=== PATIENT | male | born 1940 | race Caucasian/White ===

== ENCOUNTER → 2019-05-15 | Day surgery (SDC) | payer MEDICARE, BC ==
[2019-05-14 15:54] VITALS: BMI 30.7
[~2019-05-15] MED LIST: Adenosine 6 MG/2 ML VIAL ONE; Clopidogrel Bisulfate 300 MG TAB ONE; Diazepam 5 MG TAB ONE; Enalaprilat Dihydrate 1.25 MG/ML VIAL ONE; Fentanyl 100 MCG/2 ML VIAL ONE; Heparin (Artline) 500 ML ONE; Heparin 10,000 UNITS/1 ML VIAL ONE; Iopamidol 370 76% 100 ML VIAL ONE; Iopamidol 370 76% 50 ML VIAL FS ONE; Lidocaine 1% (PF) 30 ML VIAL ONE; Midazolam HCl 2 mg/2 ml Vial ONE; Nitroglycerin 100MG/250ML BOT 250 ML ONE; Verapamil 5 MG/2 ML VIAL ONE
[2019-05-15 10:36] LABS: #Eosinphils 0.1 thou/uL (0.0-0.7); #Lymphocytes 1.1 thou/uL (1.20-3.40); #Monocytes 0.6 thou/uL (0.11-0.59); #Neutrophils 5.1 thou/uL (1.40-6.50); %Basophils 0.3 % (0.0-1.0); %Eosinophils 1.2 % (0.0-10.0); %Lymphocytes 15.9 % (21.0-51.0); %Monocytes 8.2 % (0.0-10.0); %Neutrophils 74.3 % (42.0-75.0); Mean Corpuscular Hemoglobin 31.7 pg (27.0-31.0); Mean Corpuscular Volume 96.1 fL (78.0-98.0); Mean Platelet Volume 9.4 fL (7.4-10.4); Platelet Count 142 thou/uL (130-400); RBC Distribution Width 12.4 % (11.5-14.5); Red Blood Cell (RBC) Count 4.43 mill/uL (4.70-6.10); White Blood Cell (WBC) Count 6.9 thou/uL (4.8-10.8)
[2019-05-15 10:52] LABS: Anion Gap 13 mmol/L (10-20); BUN (Urea Nitrogen) 17 mg/dL (8.4-25.7); Calc. Creatinine Clearance 64 mL/min (70-130); Calcium 9.8 mg/dL (7.8-10.44); Carbon Dioxide 24 mmol/L (23-31); Chloride 105 mmol/L (98-107); Estimated GFR-MDRD 54; Glucose 105 mg/dL (83-110); Potassium 4.7 mmol/L (3.5-5.1); Sodium 137 mmol/L (136-145)
== END ==
LOC: CCL 09:47
PROVIDERS: ATTEND Internal Medicine Cardiovascular Disease
PROC: 027034Z Dilation of Coronary Artery, One Artery with Drug-eluting Intraluminal Device, Percutaneous Approach (ICD-10-PCS; principal; 2019-05-15)
PROC: 4A023N7 Measurement of Cardiac Sampling and Pressure, Left Heart, Percutaneous Approach (ICD-10-PCS; 2019-05-15)
PROC: B2111ZZ Fluoroscopy of Multiple Coronary Arteries using Low Osmolar Contrast (ICD-10-PCS; 2019-05-15)
DX: I25.10 Atherosclerotic heart disease of native coronary artery without angina pectoris (principal); I35.0 Nonrheumatic aortic (valve) stenosis; E78.00 Pure hypercholesterolemia, unspecified; I10 Essential (primary) hypertension; E11.9 Type 2 diabetes mellitus without complications; Z79.82 Long term (current) use of aspirin; Z79.899 Other long term (current) drug therapy; Z88.8 Allergy status to other drugs, medicaments and biological substances
CPT/HCPCS: 76942; 80048; 85025; 85347; 92928; 93005; 93010; 93454; 93571; 99152; 99153; C1760; C1769; C1887; C9600; J0153; J1644; J2001; J2250; J3010; Q9967

== ENCOUNTER 2019-06-22 14:48 | Inpatient (IN) | payer MEDICARE, BC ==
[2019-06-22 15:11] LABS: #Basophils 0.1 thou/uL (0.0-0.2); #Lymphocytes 1.7 thou/uL (1.20-3.40); #Monocytes 0.5 thou/uL (0.11-0.59); #Neutrophils 11.3 thou/uL (1.40-6.50); %Basophils 0.4 % (0.0-1.0); %Eosinophils 0.2 % (0.0-10.0); %Lymphocytes 12.4 % (21.0-51.0); %Monocytes 3.8 % (0.0-10.0); %Neutrophils 83.2 % (42.0-75.0); Hemoglobin 13.1 g/dL (14.0-18.0); Mean Corpuscular HGB CONC 34.1 g/dL (32.0-36.0); Mean Corpuscular Hemoglobin 32.2 pg (27.0-31.0); Mean Corpuscular Volume 94.5 fL (78.0-98.0); Platelet Count 151 thou/uL (130-400); Red Blood Cell (RBC) Count 4.08 mill/uL (4.70-6.10); White Blood Cell (WBC) Count 13.6 thou/uL (4.8-10.8)
--- NOTE | 2019-06-22 15:14 | RAD ---
Exam: Chest one view HISTORY:Hypotension. Syncope. Comparison: 08/11/2012 FINDINGS: Cardiac silhouette: Normal Aorta: Atherosclerosis of the aortic knob Pulmonary vessels: Normal Costophrenic angles: Clear LUNGS: No masses or consolidation. Pneumothorax: None Osseous abnormalities: None IMPRESSION: No acute cardiopulmonary process. Atherosclerosis.
[2019-06-22] MEDS ORDERED: Iopamidol 370 76% 100 ML VIAL ONE (15:15)
[2019-06-22] MEDS ORDERED: Ondansetron PF 4 MG/2 ML Vial ONE (15:33)
[2019-06-22 15:34] LABS: ALT (SGPT) 19 U/L (8-55); AST (SGOT) 14 U/L (5-34); Albumin 4.2 g/dL (3.4-4.8); Alkaline Phosphatase 57 U/L (40-110); Anion Gap 16 mmol/L (10-20); BUN (Urea Nitrogen) 71 mg/dL (8.4-25.7); Bilirubin, Total 0.7 mg/dL (0.2-1.2); CK (CPK) 50 U/L (30-200); Calc. Creatinine Clearance 0 mL/min (70-130); Calcium 9.8 mg/dL (7.8-10.44); Carbon Dioxide 18 mmol/L (23-31); Chloride 106 mmol/L (98-107); Estimated GFR-MDRD 35; Globulin 2.7 g/dL (2.4-3.5); Glucose 166 mg/dL (83-110); Protein, Total 6.9 g/dL (5.8-8.1); Sodium 135 mmol/L (136-145)
[2019-06-22] MEDS ORDERED: Pantoprazole 40 MG VIAL ONE (18:22)
--- NOTE | 2019-06-22 18:22 | CT ---
CT Abdomen Pelvis W Con: 06/22/2019 5:51 PM CLINICAL INFORMATION: Nausea and vomiting. Hypotension. COMPARISON: None. TECHNIQUE: Multiple contiguous axial images were obtained and a CT of the abdomen and pelvis with IV contrast. C oronal and sagittal reformats were performed. FINDINGS: Lower Chest: Small hiatal hernia Abdomen: Liver: within normal limits. Bile Ducts: Normal caliber. Gallbladder: Calcified gallstone in the neck. Pancreas: within normal limits. Spleen: within normal limits. Adrenals: within normal limits. Kidneys: 2.2 cm left renal cyst Pelvis: Reproductive Organs: No pelvic masses. Ureters: within normal limits. Bladder: within normal limits. Peritoneum: No ascites or free air, no fluid collection. Bowel: Normal caliber. Normal appendix. Scattered diverticula in the colon. Mesentery and Retroperitoneum: No enlarged mesenteric or retroperitoneal lymph nodes. Vessels: Atherosclerotic calcifications. Abdominal Wall: within normal limits. Bones: Degenerative changes in the spine. IMPRESSION: 1. No evidence of acute intraabdominal or pelvic abnormality. 2. Cholelithiasis 3. Diverticulosis 4. Hiatal hernia 5. Left renal cyst
[2019-06-22 19:26] LABS: Troponin I 0.052 ng/mL (< 0.028)
[2019-06-22] MEDS ORDERED: Acetaminophen 325 MG TAB PO PRN (19:31)
[2019-06-22] MEDS ORDERED: Acetaminophen 650 MG Suppository PR PRN (19:31)
[2019-06-22 20:22] LABS: Lactic Acid 0.8 mmol/L (0.5-2.2)
[2019-06-22] MEDS: Sodium Chloride 0.9% 1,000 ML IV SCH (20:49)
[2019-06-22 21:41] VITALS: BMI 30.7
--- NOTE | 2019-06-22 22:34 | PDOC.HHP ---
Hospitalist HPI - History of Present Illness light headed and dry heaving History of Present Illness: 78 year old male with history of recent cardiac stent placement presents for hypotension and upper abdominal pain. Stated yesterday he checked his blood pressure after taking his morning medications and it was 85/39 but blood pressure began to rise throughout the day. Today, patient states he felt "badly " and notes his blood pressure was low again and had abdominal pain with dry heaves along with diaphoresis. After patient had "dry heaves" his blood pressure increased and he felt better. Patient known to Dr. Chappell who performed a cardiac cath last month, (stent x 1), and states he had an ECHO done in his office as well. Reports ahving chronic cough that has not worsened and chronic shortness of breath with exertion, denies any associated chest pain. Has been afebrile in recent days. Reports a quart of caffeine tea and cups of coffee daily, does not drink water. ED Course: Renal function worse from baseline and given 2L NS. Due to significantly elevated BUN of 70 there was concern of GIB, given reported black stools, however, patient states this is chronic due to iron supplements. Started on Protonix IVP and given Zofran for nausea. CT Abdomen with pelvis: IMPRESSION: 1. No evidence of acute intraabdominal or pelvic abnormality. 2. Cholelithiasis 3. Diverticulosis 4. Hiatal hernia 5. Left renal cyst Indeterminate troponin 0.052 EKG showed NSR heart rate 81, nonspecific changes. Hospitalist ROS - Review of Systems Constitutional: denies: fever, chills, sweats, weakness, malaise, other Eyes: denies: pain, vision change, conjunctivae inflammation, eyelid inflammation, redness, other ENT: denies: ear pain, ear discharge, nose pain, nose discharge, nose congestion , mouth pain, mouth swelling, throat pain, throat swelling, other Respiratory: reports: SOB with excertion (chronic). denies: cough, dry, shortness of breath, hemoptysis, pleuritic pain, sputum, wheezing, other Cardiovascular: reports: light headedness. denies: chest pain, palpitations, orthopnea, paroxysmal noc. dyspnea, edema, other Gastrointestinal: reports: nausea (dry heaving), abdominal pain. denies: vomiting, diarrhea, constipation, melena, hematochezia, other Genitourinary: denies: dysuria, frequency, incontinence, hematuria, retention, other Musculoskeletal: denies: neck pain, shoulder pain, arm pain, back pain, hand pain, leg pain, foot pain, other Skin: denies: rash, lesions, maribell, bruising, other Neurological: denies: weakness, numbness, incoordination, change in speech, confusion, seizures, other - Medication Medications: Active Medications Generic Name Dose Route Start Last Admin Trade Name Phiq PRN Reason Stop Dose Admin Sodium Chloride 1,000 mls @ 65 mls/hr 06/22/19 19:45 06/22/19 20:49 Normal Saline 0.9% IV 1,000 mls .[id number] YESY Administration Allergies: NKDA Hospitalist History - Past Medical History Source: patient Cardiac: reports: HTN, Other (stent placement) Pulmonary: reports: high cholesterol 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 Gastrointestinal: reports: no pertinent history Heme/Onc: reports: no pertinent history Hepatobiliary: reports: no pertinent history Psych: reports: no pertinent history Musculoskeletal: reports: no pertinent history Rheumatologic: reports: no pertinent history Infectious Disease: reports: no pertinent history ENT: reports: no pertinent history Renal/: reports: no pertinent history Endocrine: reports: Hypothyroidism Dermatology: reports: no pertinent history - Social History Smoking Status: Former smoker Alcohol: reports: None Drugs: reports: none Living Situation: With Family Activity level: independent ambulation - Exam General Appearance: NAD, awake alert Eye: anicteric sclera ENT: moist mucosa Neck: supple, no JVD Heart: RRR, normal peripheral pulses, murmur present Respiratory: CTAB, no wheezes, no rales, no ronchi, normal chest expansion, no tachypnea Gastrointestinal: soft, non-tender, non-distended, normal bowel sounds, no guarding, no rigidity Extremities: no cyanosis, no edema Skin: normal turgor Neurological: cranial nerve grossly intact Musculoskeletal: normal tone, normal strength, no muscle wasting Psychiatric: normal affect, normal behavior, A&O x 3 Hospitalist Results - Labs Result Diagrams: 06/22/19 15:02 06/22/19 15:02 Lab results: WBC 13.6 thou/uL (4.8-10.8) H 06/22/19 15:02 Hgb 13.1 g/dL (14.0-18.0) L 06/22/19 15:02 Hct 38.6 % (42.0-52.0) L 06/22/19 15:02 MCV 94.5 fL (78.0-98.0) 06/22/19 15:02 Plt Count 151 thou/uL (130-400) 06/22/19 15:02 Neutrophils % 83.2 % (42.0-75.0) H 06/22/19 15:02 Sodium 135 mmol/L (136-145) L 06/22/19 15:02 Potassium 5.0 mmol/L (3.5-5.1) 06/22/19 15:02 Chloride 106 mmol/L (98-107) 06/22/19 15:02 Carbon Dioxide 18 mmol/L (23-31) L 06/22/19 15:02 BUN 71 mg/dL (8.4-25.7) H 06/22/19 15:02 Creatinine 1.86 mg/dL (0.7-1.3) H 06/22/19 15:02 Glucose 166 mg/dL (83-110) H 06/22/19 15:02 Lactic Acid 0.8 mmol/L (0.5-2.2) 06/22/19 19:56 Calcium 9.8 mg/dL (7.8-10.44) 06/22/19 15:02 Total Bilirubin 0.7 mg/dL (0.2-1.2) 06/22/19 15:02 AST 14 U/L (5-34) 06/22/19 15:02 ALT 19 U/L (8-55) 06/22/19 15:02 Alkaline Phosphatase 57 U/L (40-110) 06/22/19 15:02 Creatine Kinase 50 U/L (30-200) 06/22/19 15:02 Troponin I 0.032 ng/mL (< 0.028) H 06/22/19 21:55 B-Natriuretic Peptide 92.8 pg/mL (0-100) 06/22/19 19:56 Serum Total Protein 6.9 g/dL (5.8-8.1) 06/22/19 15:02 Albumin 4.2 g/dL (3.4-4.8) 06/22/19 15:02 - Radiology Interpretation CT scan - abdomen Status: report reviewed by me Hospitalist H&P A/P - Problem (1) Light headed Code(s): R42 - DIZZINESS AND GIDDINESS Status: Acute (2) Hypotension Status: Resolved Qualifiers: Hypotension type: orthostatic hypotension Qualified Code(s): I95.1 - Orthostatic hypotension (3) Nausea Code(s): R11.0 - NAUSEA Status: Resolved (4) Abdominal discomfort, epigastric Code(s): R10.13 - EPIGASTRIC PAIN Status: Resolved (5) Mmvai-ju-dorxexn kidney injury Code(s): N17.9 - ACUTE KIDNEY FAILURE, UNSPECIFIED; N18.9 - CHRONIC KIDNEY DISEASE, UNSPECIFIED Status: Acute (6) History of hypertension Code(s): Z86.79 - PERSONAL HISTORY OF OTHER DISEASES OF THE CIRCULATORY SYSTEM Status: Chronic (7) Hyperlipidemia Code(s): E78.5 - HYPERLIPIDEMIA, UNSPECIFIED Status: Chronic (8) Anemia, iron deficiency Code(s): D50.9 - IRON DEFICIENCY ANEMIA, UNSPECIFIED Status: Chronic (9) BPH (benign prostatic hyperplasia) Code(s): N40.0 - BENIGN PROSTATIC HYPERPLASIA WITHOUT LOWER URINRY TRACT SYMP Status: Chronic (10) Cardiac murmur Code(s): R01.1 - CARDIAC MURMUR, UNSPECIFIED Status: Chronic (11) Hypothyroidism Code(s): E03.9 - HYPOTHYROIDISM, UNSPECIFIED Status: Chronic - Plan Plan: * Continue to monitor BP * Continue gentle IV hydration and monitor renal function, consult nephrology if no improvement * Repeat orthostatic BPs in AM, if still orthostatic would benefit from cardiology input- for day team to decide * Obtain most recent ECHO, done last month by Dr. Chappell * Continue cardiac monitoring and trend troponins * Continue IV protonix and check stool for occult blood * Monitor WBCs, add lactic acid and procalcitonin, rule out UTI * DVT prophylaxis with mechanical SCDs * Check TSH in AM, patient known to have hypothyroidism * Reconcile home medications once verified, hold antihypertensives and nephrotoxic meds Case discussed with Dr. Parisi who agrees with plan.
[2019-06-22 22:45] LABS: CKMB 1.6 ng/mL (0-6.6)
[2019-06-22 23:46] LABS: Bacteria/HPF None Seen HPF (None Seen); Bilirubin Negative (Negative); Blood, Urine Negative (Negative); Clarity Clear (Clear); Glucose, Urine (Dipstick) Normal (Negative); Leukocyte Negative Leu/uL (Negative); Nitrite Negative (Negative); Protein, Urine (Dipstick) Negative (Neg-Trace); RBC/HPF 0-3 HPF (0-3); Squamous Epithelial None Seen HPF (0-3); Urobilinogen Normal mg/dL (Less than 2); WBC/HPF 0-3 HPF (0-3)
[2019-06-22 23:47] LABS: Urine Culture Reflex No No
[2019-06-22] MEDS ORDERED: Magnesium 2 GM/50 ML 2 GM in Premix Bag 1 BAG IVPB SCH (23:59)
[2019-06-23 02:22] LABS: CKMB 1.7 ng/mL (0-6.6)
[2019-06-23 04:40] LABS: #Lymphocytes 1.5 thou/uL (1.20-3.40); #Monocytes 0.6 thou/uL (0.11-0.59); #Neutrophils 5.1 thou/uL (1.40-6.50); %Basophils 0.3 % (0.0-1.0); %Eosinophils 0.7 % (0.0-10.0); %Lymphocytes 20.8 % (21.0-51.0); %Monocytes 7.7 % (0.0-10.0); %Neutrophils 70.5 % (42.0-75.0); Hemoglobin 10.5 g/dL (14.0-18.0); Mean Corpuscular HGB CONC 34.7 g/dL (32.0-36.0); Mean Corpuscular Hemoglobin 32.4 pg (27.0-31.0); Mean Corpuscular Volume 93.6 fL (78.0-98.0); Mean Platelet Volume 9.3 fL (7.4-10.4); Platelet Count 113 thou/uL (130-400); Platelet Morphology Comment Appears Decreased; RBC Distribution Width 12.1 % (11.5-14.5); Red Blood Cell (RBC) Count 3.22 mill/uL (4.70-6.10); White Blood Cell (WBC) Count 7.2 thou/uL (4.8-10.8)
[2019-06-23 04:55] LABS: Anion Gap 10 mmol/L (10-20); BUN (Urea Nitrogen) 46 mg/dL (8.4-25.7); Calc. Creatinine Clearance 64 mL/min (70-130); Calcium 9.1 mg/dL (7.8-10.44); Carbon Dioxide 22 mmol/L (23-31); Chloride 111 mmol/L (98-107); Estimated GFR-MDRD 54; Glucose 103 mg/dL (83-110); Potassium 4.5 mmol/L (3.5-5.1); Sodium 138 mmol/L (136-145)
--- NOTE | 2019-06-23 07:34 | PDOC.HOSPP ---
- Subjective Encounter Date: 06/23/19 Encounter Time: 07:31 Subjective: no more emesis. has black stools but is on po Fe - Objective Vital Signs & Weight: Vital Signs (12 hours) Temp Pulse Resp BP BP BP BP 06/23/19 03:35 97.7 F 73 17 129/61 06/22/19 23:35 98.0 F 79 18 138/66 06/22/19 20:23 91 89/54 L 06/22/19 20:22 88 141/69 H 06/22/19 20:21 98.2 F 81 18 154/68 H Pulse Ox 06/23/19 03:35 96 06/22/19 23:35 97 06/22/19 20:23 06/22/19 20:22 06/22/19 20:21 97 Weight Weight 219 lb 12.8 oz I&O: 06/22/19 06/23/19 06/24/19 06:59 06:59 06:59 Intake Total 890 Output Total 1150 Balance -260 Result Diagrams: 06/23/19 04:19 06/23/19 04:19 Hospitalist ROS - Medication Medications: Active Medications Generic Name Dose Route Start Last Admin Trade Name Freq PRN Reason Stop Dose Admin Sodium Chloride 1,000 mls @ 65 mls/hr 06/22/19 19:45 06/22/19 20:49 Normal Saline 0.9% IV 1,000 mls .[id number] YESY Administration - Exam General Appearance: awake alert Neck: no JVD Heart: RRR, III/IV Heart - other findings: sys Respiratory: CTAB Gastrointestinal: soft, normal bowel sounds Extremities: no cyanosis Hosp A/P (1) CAD (coronary artery disease) Code(s): I25.10 - ATHSCL HEART DISEASE OF [place] CORONARY ARTERY W/O ANG PCTRS Status: Acute Qualifiers: Coronary Disease-Associated Artery/Lesion type: [place] artery [place] vs. transplanted heart: [place] heart Associated angina: without angina Qualified Code(s): I25.10 - Atherosclerotic heart disease of [place] coronary artery without angina pectoris (2) Bvsyq-wy-tmvhhbx kidney injury Code(s): N17.9 - ACUTE KIDNEY FAILURE, UNSPECIFIED; N18.9 - CHRONIC KIDNEY DISEASE, UNSPECIFIED Status: Acute Qualifiers: Acute renal failure type: unspecified (3) Hyperlipidemia Code(s): E78.5 - HYPERLIPIDEMIA, UNSPECIFIED Status: Chronic Qualifiers: Hyperlipidemia type: unspecified Qualified Code(s): E78.5 - Hyperlipidemia , unspecified (4) Hypothyroidism Code(s): E03.9 - HYPOTHYROIDISM, UNSPECIFIED Status: Chronic Qualifiers: Hypothyroidism type: unspecified Qualified Code(s): E03.9 - Hypothyroidism , unspecified (5) Abdominal discomfort, epigastric Code(s): R10.13 - EPIGASTRIC PAIN Status: Acute (6) Nausea Code(s): R11.0 - NAUSEA Status: Acute - Plan Hg dropped 13 to 10, will repeat at 1000. cont off ASA/plavix. stool for occult blood cont iv PPI notify cardiology clear liquids
[2019-06-23] MEDS: Citalopram 20 MG TAB PO SCH (08:07)
[2019-06-23] MEDS: Levothyroxine Sodium 50 MCG TAB PO SCH (08:07)
[2019-06-23] MEDS: Finasteride 5 MG TAB PO SCH (08:07)
[2019-06-23] MEDS: Pantoprazole 40 MG VIAL IVP SCH (08:08)
[2019-06-23] MEDS ORDERED: Finasteride 5 MG TAB PO SCH (09:00)
[2019-06-23] MEDS ORDERED: Citalopram 20 MG TAB PO SCH (09:00)
[2019-06-23 10:56] LABS: #Eosinphils 0.1 thou/uL (0.0-0.7); #Lymphocytes 1.3 thou/uL (1.20-3.40); #Monocytes 0.4 thou/uL (0.11-0.59); #Neutrophils 5.1 thou/uL (1.40-6.50); %Basophils 0.4 % (0.0-1.0); %Eosinophils 0.8 % (0.0-10.0); %Lymphocytes 18.5 % (21.0-51.0); %Monocytes 6.2 % (0.0-10.0); %Neutrophils 74.2 % (42.0-75.0); Hemoglobin 10.5 g/dL (14.0-18.0); Mean Corpuscular HGB CONC 35.1 g/dL (32.0-36.0); Mean Corpuscular Hemoglobin 33.1 pg (27.0-31.0); Mean Corpuscular Volume 94.2 fL (78.0-98.0); Mean Platelet Volume 9.4 fL (7.4-10.4); Platelet Count 123 thou/uL (130-400); RBC Distribution Width 12.1 % (11.5-14.5); Red Blood Cell (RBC) Count 3.16 mill/uL (4.70-6.10); White Blood Cell (WBC) Count 6.8 thou/uL (4.8-10.8)
--- NOTE | 2019-06-23 11:25 | PDOC.EVN ---
Event Note - Event Note Event Note: fobt pending. Hg dropped 13 to 10. cont PPI. GI consult poss EGD
[2019-06-23] MEDS: Sodium Chloride 0.9% 1,000 ML IV SCH (13:19)
--- NOTE | 2019-06-23 14:20 | PDOC.EVN ---
Event Note - Event Note Event Note: FOBT pos. change to inpatient. will need iv PPI, EGD, decisions about ASA/ plavix
[2019-06-23] MEDS ORDERED: Clopidogrel Bisulfate 75 MG TAB PO SCH (19:15)
--- NOTE | 2019-06-23 20:23 | CON ---
DATE OF CONSULTATION: 06/23/2019 CHIEF COMPLAINT: Lightheadedness and dizziness. HISTORY OF PRESENT ILLNESS: Mr. Berman is an 78-year-old man, who had a drug-eluting stent placed to his LAD on 05/15/2019, who yesterday developed lightheadedness and dizziness and then had some dry heaving. He has had no hematemesis with that. No abdominal pain. He has been on iron chronically and reports black stools, always on the iron, which is not changed over the last few months. He has had no overt red blood in the stool. He did receive 600 mg of Plavix along with his coronary stent followed by daily aspirin and Plavix. His weight has been stable. He has had colonoscopy performed by Dr. Roman back in 2013. He reports a post polypectomy bleed after that and had a followup colonoscopy in [address] Rodriguez with hyperplastic polyps removed. With the original colonoscopy, he had adenomatous polyps and inflammatory polyps removed. PAST MEDICAL HISTORY: Coronary artery disease, status post stent last month, hypertension, hyperlipidemia, and hypothyroidism. PAST SURGICAL HISTORY: Cataract surgery. FAMILY HISTORY: Negative for GI malignancy. SOCIAL HISTORY: No smoking. No drugs. Does drink alcohol. ALLERGIES: NO KNOWN DRUG ALLERGIES. MEDICATIONS: Prior to admission; 1. Simvastatin. 2. Levothyroxine. 3. Isosorbide mononitrate. 4. Finasteride. 5. Iron sulfate. 6. Famotidine. 7. Clopidogrel 75 mg daily. 8. Aspirin 81 mg daily. 9. Vitamin D. 10. Amlodipine. REVIEW OF SYSTEMS: Negative x10 systems reviewed except as stated in history of present illness. PHYSICAL EXAMINATION: VITAL SIGNS: Temperature 97.8, pulse 71, and blood pressure 157/72. GENERAL: He is in no acute distress. Alert and oriented x3. HEENT: Eyes have no scleral icterus. Oropharynx is clear without lesions. No cervical or supraclavicular lymphadenopathy. LUNGS: Clear to auscultation bilaterally. HEART: Regular rate and rhythm without murmur. ABDOMEN: Soft, nontender, and nondistended. Bowel sounds are present. EXTREMITIES: No lower extremity edema. RECTAL: Reveals scant, thin black stool in the rectal vault. This has appearance more consistent with iron than obvious melena, however, this will need to be evaluated further. LABORATORY DATA: White blood cell count 6.8, hemoglobin 10.5, platelets 123, and creatinine 1.29. IMPRESSION: 1. Anemia. Anemia is most likely secondary to acute blood loss given the black stool in the rectal vault and dropped from a baseline hemoglobin of 14 back a month ago to 10.5 today after initiation of Plavix. Still there was not an obvious overt large volume acute bleed, and this may have been more of a gradual bleed over the last month. He did present, however, with hypotension and dizziness. 2. Coronary artery disease, status post drug-eluting stent to the LAD on 05/15/2019. He will need to be restarted on his aspirin and Plavix. RECOMMENDATIONS: 1. Protonix IV. 2. EGD tomorrow. Job ID: [id number]
[2019-06-23] MEDS: Atorvastatin Calcium 20 MG TAB PO SCH (20:26)
[2019-06-23] MEDS ORDERED: SIMVASTATIN PO SCH (21:00)
[2019-06-24 04:45] LABS: #Basophils 0.1 thou/uL (0.0-0.2); #Eosinphils 0.2 thou/uL (0.0-0.7); #Lymphocytes 1.7 thou/uL (1.20-3.40); #Monocytes 0.5 thou/uL (0.11-0.59); #Neutrophils 3.9 thou/uL (1.40-6.50); %Basophils 0.9 % (0.0-1.0); %Eosinophils 3.4 % (0.0-10.0); %Lymphocytes 26.2 % (21.0-51.0); %Monocytes 7.3 % (0.0-10.0); %Neutrophils 62.3 % (42.0-75.0); Mean Corpuscular HGB CONC 34.6 g/dL (32.0-36.0); Mean Corpuscular Hemoglobin 32.7 pg (27.0-31.0); Mean Corpuscular Volume 94.7 fL (78.0-98.0); Mean Platelet Volume 9.4 fL (7.4-10.4); Platelet Count 116 thou/uL (130-400); RBC Distribution Width 12.1 % (11.5-14.5); Red Blood Cell (RBC) Count 3.06 mill/uL (4.70-6.10); White Blood Cell (WBC) Count 6.3 thou/uL (4.8-10.8)
[2019-06-24] MEDS: Sodium Chloride 0.9% 1,000 ML IV SCH ×3 (04:52→04:55)
--- NOTE | 2019-06-24 06:29 | CON ---
DATE OF CONSULTATION: 06/23/2019 TIME: 1030 hours. HISTORY OF PRESENT ILLNESS: Mr. Berman is a pleasant 78-year-old male, well known us, to have moderate , a history of coronary artery disease, status post recent PCI and drug-eluting stent placement to his mid LAD in May of 2019. He says he presented to the emergency room with a complaint of low blood pressure, weakness, and near-syncope. He says his blood pressure has been labile for the last couple of weeks. On Sunday night, he felt pretty poorly and says that he was weak. His blood pressure was 85/39 prior to coming to the hospital. He had associated nausea and near-syncope. He had mild chest discomfort at the time also. He denies any shortness of breath or dyspnea on exertion or chest discomfort prior to this episode occurring. On arrival, he was hypotensive and has been fully rehydrated. His kidney function on arrival was 1.86 creatinine and is now improved to 1.29 after fluid. His blood pressure is still a little labile. Some of his antihypertensive medicines have been held. Currently, he feels much better. He is ready to get up and walk around. Also of note, we were consulted because his hemoglobin dropped from 13 to 10 today and we are awaiting fecal occult blood testing and need a decision on anticoagulation. PAST MEDICAL HISTORY: Hypertension, hyperlipidemia, erectile dysfunction, moderate aortic stenosis, and coronary artery disease. PAST SURGICAL HISTORY: 1. Cataract removal bilaterally. 2. Colonoscopy. 3. Left heart catheterization with no intervention in December 2014. 4. Left heart catheterization with PCI and drug-eluting stent placement to LAD on 05/15/2019. FAMILY HISTORY: Positive for diabetes, hypertension, and congestive heart failure. SOCIAL HISTORY: The patient is a nonsmoker. He does drink caffeine. He denies any alcohol use. MEDICATIONS: Prior to arrival; 1. Famotidine 20 mg once a day. 2. Finasteride 5 mg once a day. 3. Norvasc 10 mg half tablet b.i.d. 4. Vitamin D3 of 1000 units one capsule daily. 5. Aspirin 81 mg daily. 6. Citalopram 20 mg once a day. 7. Fish oil daily. 8. Simvastatin 40 mg at bedtime. 9. Iron sulfate 325 mg once a day. 10. Imdur 60 mg once a day. 11. Plavix 75 mg once a day. 12. Omeprazole 20 mg once a day. ALLERGIES: LIPITOR CAUSED MUSCLE ACHES AND PAINS. REVIEW OF SYSTEMS: In general, a 10-point review of systems was negative except for HPI and Past Medical History as mentioned above along with awakened to urinate. PHYSICAL EXAMINATION: GENERAL: This is a pleasant elderly male, who is in no acute distress. NEUROLOGIC: He is alert, awake, and oriented x3. VITAL SIGNS: Stable. CHEST: Clear to auscultation bilaterally. CARDIOVASCULAR: Regular rate and rhythm with normal S1 and S2 and 2/6 systolic murmur at left and right upper sternal border radiating to the neck. ABDOMEN: Soft, nontender to palpation on inspection. EXTREMITIES: No clubbing, cyanosis, or edema. SKIN: Warm and dry. PSYCHIATRIC: Mood and affect are appropriate. MUSCULOSKELETAL: The patient has full range of motion of extremities. LABORATORY DATA: Reviewed, and otherwise stable except mentioned above. IMAGING DATA: Telemetry, the patient is in sinus rhythm. IMPRESSION: 1. Anemia. 2. Hypotension and near-syncope. 3. History of coronary artery disease, status post percutaneous coronary intervention. 4. Moderate aortic stenosis. PLAN: At this time, I would agree with holding antihypertensive medications. He may also need some of his prostate medications held to prevent orthostatic hypotension during this procedure. I agree with IV fluid. His last echo showed his aortic stenosis is moderate. I do not think repeat echocardiogram is warranted at this time. His symptoms of near-syncope could indeed be worse because of his valvular disease. Regarding his anemia, this is a tricky situation. The patient had a recent PCI with drug-eluting stent placement in May and so Plavix and aspirin should be continued for a minimum of 6 months. The stent was not placed due to unstable angina. We will await the fecal occult blood testing, but if at all possible, we need to restart anticoagulation first available. I will further discuss this with Dr. Chappell and see what our options are, pending those test results. The patient understands and agrees with plan of care. Job ID: [id number]
[2019-06-24] MEDS ORDERED: PROPOFOL 200 MG/20 ML VIAL ONE (10:24)
[2019-06-24] MEDS ORDERED: Lidocaine 1% PF 5 ML VIAL ONE (10:24)
--- NOTE | 2019-06-24 12:53 | PDOC.HOSPP ---
- Subjective Encounter Date: 06/24/19 Encounter Time: 09:10 Subjective: pt ambulating, no dizzy, EGD today. BP going up, BMP meds on hold to allow permissive HTN. - Objective Vital Signs & Weight: Vital Signs (12 hours) Temp Pulse Resp BP Pulse Ox 06/24/19 07:48 97.8 F 71 18 167/77 H 96 06/24/19 04:22 98.4 F 72 16 160/72 H 98 Weight Weight 219 lb 12.8 oz I&O: 06/23/19 06/24/19 06/25/19 06:59 06:59 06:59 Intake Total 890 1989 Output Total 1150 2900 Balance -260 -910 Result Diagrams: 06/24/19 04:17 06/23/19 04:19 Hospitalist ROS - Medication Medications: Active Medications Generic Name Dose Route Start Last Admin Trade Name Freq PRN Reason Stop Dose Admin Atorvastatin Calcium 20 mg 06/23/19 21:00 06/23/19 20:26 Lipitor PO 20 mg HS YESY Administration Cholecalciferol 1,000 units 06/23/19 21:00 06/23/19 20:26 Vitamin D3 PO 1,000 units HS YESY Administration Citalopram Hydrobromide 20 mg 06/23/19 09:00 06/23/19 08:07 Celexa PO 20 mg DAILY YESY Administration Finasteride 5 mg 06/23/19 09:00 06/23/19 08:07 Proscar PO 5 mg DAILY YESY Administration Sodium Chloride 1,000 mls @ 65 mls/hr 06/22/19 19:45 06/24/19 04:55 Normal Saline 0.9% IV Not Given .[id number] YESY Levothyroxine Sodium 50 mcg 06/23/19 09:00 06/23/19 08:07 Synthroid PO 50 mcg DAILY YESY Administration Pantoprazole Sodium 40 mg 06/23/19 09:00 06/23/19 08:08 Protonix IVP 40 mg DAILY YESY Administration - Exam General Appearance: NAD, awake alert Eye: PERRL ENT: normocephalic atraumatic Neck: supple Heart: RRR Respiratory: CTAB Gastrointestinal: soft, normal bowel sounds Neurological: cranial nerve grossly intact Hosp A/P - Plan (1) CAD (coronary artery disease) Code(s): I25.10 - ATHSCL HEART DISEASE OF [place] CORONARY ARTERY W/O ANG PCTRS Status: Acute Qualifiers: Coronary Disease-Associated Artery/Lesion type: [place] artery [place] vs. transplanted heart: [place] heart Associated angina: without angina Qualified Code(s): I25.10 - Atherosclerotic heart disease of [place] coronary artery without angina pectoris (2) Fsket-vk-szyxmdy kidney injury improving fm 1.8 to 1.3 (3) Hyperlipidemia (4) Hypothyroidism -on supplement (5) Abdominal discomfort, epigastric Code(s): R10.13 - EPIGASTRIC PAIN Status: Acute (6) Nausea Code(s): R11.0 - NAUSEA Status: Acute ASA/plavix has to be started soon pending EGD report HTN -as his meds are on hold, his SBP over 160s -will start his home meds slowly, with hold if SBP<110. acute blood loss anemia -not requ'd transfusion - on pPI -hgb stable at 10 - eGD on
[2019-06-24] MEDS: Levothyroxine Sodium 50 MCG TAB PO SCH (13:07)
[2019-06-24] MEDS: Citalopram 20 MG TAB PO SCH (13:07)
[2019-06-24] MEDS: Finasteride 5 MG TAB PO SCH (13:07)
[2019-06-24] MEDS: Pantoprazole 40 MG VIAL IVP SCH (13:07)
--- NOTE | 2019-06-24 13:16 | OP ---
DATE OF PROCEDURE: 06/24/2019 PRE-PROCEDURE DIAGNOSES: 1. Gastrointestinal bleed. 2. Recent LAD coated stent, on aspirin and Plavix. POSTPROCEDURE DIAGNOSES: 1. Mild esophagitis without ulcers or erosions. 2. White-based ulcer in the antrum with edema and erythema, bland with no visible vessels. Margins biopsied, this is a benign appearance. 3. Erosions of antrum biopsied, same jar, benign appearance. 4. Slight erythema in the proximal stomach and small erosions, non-biopsied. 5. Normal duodenum. 6. No active bleeding. RECOMMENDATIONS: 1. Continue PPI. Resume Plavix and aspirin as needed. 2. Maintenance PPI therapy. 3. Stop famotidine on discharge. The patient will need to be on PPI as long as he is on antithrombotic therapy. ANESTHESIA: TIVA. DESCRIPTION OF PROCEDURE: After the patient was informed of the risks, benefits, and possible complications of endoscopy including perforation, bleeding, reaction to medication, and aspiration, informed consent was obtained. The patient was brought to endoscopy suite, where he was sedated in gradual fashion. Once he was comfortable, a bite block was placed inside the orifice. The endoscope was advanced into the esophagus, stomach and second and third portions of the duodenum and slowly removed. There was good visualization of mucosa. The esophagus was normal. There was slight erythema of the lower esophageal sphincter consistent with reflux. There was a very small hiatal hernia, but no evidence of Richard's ulcers or erosions. There were a few small erosions just below the GE junction. These appeared benign and were not biopsied. There was normal distensibility of the stomach. There are few red spots in the stomach, but there were no overt AVMs or bleeding vessels or ulcers in the proximal stomach. The body was normal in appearance. In the antrum, there was erythematous, edematous mucosa in the anterior wall and ulcer about 5 to 7 mm was found that as white based, nonbleeding. No visible vessels were seen. There were no clots. There was no old blood in the stomach or duodenum. Biopsies were taken from the margins of the small ulcer. There were also some mild erythema and erosions in the antrum as well. Duodenum was entered and found to be normal. Retroflexed views in the stomach were normal. The scope was removed and the patient tolerated the procedure well. There were no complications. Job ID: [id number]
--- NOTE | 2019-06-24 17:48 | PRG ---
DATE OF SERVICE: 06/24/2019 SUBJECTIVE: Mr. Berman is doing well. He recently was diagnosed with antral gastritis with white-based 5 to 7 mm ulcer in the antrum. It was not bleeding and felt to be low risk. He has no current complaints. OBJECTIVE: VITAL SIGNS: Blood pressure 150/66, pulse 72, and temperature 97.8. GENERAL: The patient is a pleasant man, in no acute distress, appears stated age. HEAD, EYES, EARS, NOSE, AND THROAT: Sclerae without icterus. Mouth: Moist mucous membranes, normal palate. NECK: No jugular venous distention. Carotid upstroke is brisk. No bruits bilaterally. LUNGS: Clear to auscultation. HEART: Regular rate and rhythm, normal S1 and S2. ABDOMEN: Soft, nontender, nondistended. EXTREMITIES: No edema. LABORATORY DATA: Hemoglobin 10. Creatinine 1.29. IMPRESSION: 1. Recent gastric ulcer. 2. Coronary artery disease. 3. Status post stent placement. RECOMMENDATIONS: 1. We will recommend restarting aspirin and Plavix. 2. I recommend PPI for GI that does not interact with Plavix. 3. From my standpoint, it will be okay to discharge in a.m. once his hemoglobin is stable with close outpatient followup. Job ID: [id number]
[2019-06-24] MEDS ORDERED: Aspirin 81 mg Enteric Coated Tablet PO SCH (21:00)
[2019-06-24] MEDS ORDERED: Clopidogrel Bisulfate 75 MG TAB PO SCH (21:00)
[2019-06-24] MEDS: Atorvastatin Calcium 20 MG TAB PO SCH (21:43)
[2019-06-24] MEDS: Amlodipine 5 MG TAB PO SCH (21:44)
[2019-06-24] MEDS: Isosorbide Mononitrate (ER) 30 MG TAB PO SCH (21:45)
[2019-06-25 04:28] LABS: #Eosinphils 0.4 thou/uL (0.0-0.7); #Lymphocytes 1.5 thou/uL (1.20-3.40); #Monocytes 0.6 thou/uL (0.11-0.59); #Neutrophils 4.4 thou/uL (1.40-6.50); %Basophils 0.2 % (0.0-1.0); %Eosinophils 5.9 % (0.0-10.0); %Lymphocytes 21.5 % (21.0-51.0); %Monocytes 8.2 % (0.0-10.0); %Neutrophils 64.1 % (42.0-75.0); Hemoglobin 9.7 g/dL (14.0-18.0); Mean Corpuscular HGB CONC 33.6 g/dL (32.0-36.0); Mean Corpuscular Hemoglobin 31.9 pg (27.0-31.0); Mean Corpuscular Volume 94.9 fL (78.0-98.0); Platelet Count 120 thou/uL (130-400); RBC Distribution Width 12.2 % (11.5-14.5); Red Blood Cell (RBC) Count 3.03 mill/uL (4.70-6.10); White Blood Cell (WBC) Count 6.8 thou/uL (4.8-10.8)
[2019-06-25 04:49] LABS: Anion Gap 9 mmol/L (10-20); BUN (Urea Nitrogen) 17 mg/dL (8.4-25.7); Calc. Creatinine Clearance 68 mL/min (70-130); Carbon Dioxide 27 mmol/L (23-31); Chloride 105 mmol/L (98-107); Estimated GFR-MDRD 57; Glucose 106 mg/dL (83-110); Potassium 4.2 mmol/L (3.5-5.1); Sodium 137 mmol/L (136-145)
[2019-06-25] MEDS: Finasteride 5 MG TAB PO SCH (08:49)
[2019-06-25] MEDS: Amlodipine 5 MG TAB PO SCH (08:49)
[2019-06-25] MEDS: Citalopram 20 MG TAB PO SCH (08:49)
[2019-06-25] MEDS: Isosorbide Mononitrate (ER) 30 MG TAB PO SCH (08:49)
[2019-06-25] MEDS: Levothyroxine Sodium 50 MCG TAB PO SCH (08:51)
[2019-06-25] MEDS: Pantoprazole 40 MG VIAL IVP SCH (08:52)
[2019-06-25] MEDS ORDERED: Clopidogrel Bisulfate 75 MG TAB PO SCH (09:00)
[2019-06-25 14:57] VITALS: BP 133/64; TEMP 97.6
--- NOTE | 2019-06-25 15:41 | DIS ---
DATE OF ADMISSION: 06/22/2019 DATE OF DISCHARGE: 06/25/2019 DISCHARGE DIAGNOSES: 1. Coronary artery disease. 2. Yxknj-[id number]-uwdrbuz kidney disease. Creatinine is 1.3 prior to discharge. 3. Hyperlipidemia. 4. Hypothyroidism. 5. Hypertension. 6. Abnormal troponin/metabolic mismatch, type 2 demand ischemia. DISCHARGE MEDICATIONS: 1. Levothyroxine 50 mcg daily. 2. Plavix 75 mg daily. 3. Protonix 40 mg twice a day for 2 weeks and then 40 mg daily. 4. Aspirin 81 mg daily. 5. Vitamin D3 of 1000 units daily. 6. Citalopram 20 mg daily. 7. Ferrous sulfate 325 mg daily. 8. Finasteride 5 mg daily. 9. Fish oil. 10. Isosorbide mononitrate 60 mg daily. 11. Simvastatin 40 mg at bedtime. PHYSICAL EXAMINATION: VITAL SIGNS: On the day of discharge, his temperature 97.9, pulse 60, blood pressure 146/67, saturating 100% on room air. GENERAL: The patient is alert, oriented x4, well-developed, well-nourished male , not in any acute distress. CARDIOVASCULAR: Regular rate and rhythm without murmurs, rubs, or gallops. LUNGS: Clear to auscultation bilaterally without wheezing, rales, or rhonchi. ABDOMEN: Soft, nontender, nondistended. Good bowel sounds. EXTREMITIES: Without any pitting edema. HOSPITAL COURSE: Please refer the history and physical as well as daily progress notes for more details. Briefly, this is an 78-year-old male, presented with lightheadedness and dry heaving,hypertension as well as upper abdominal pain. The patient also presented with chronic cough and his renal function was reported having some black stool. However, the patient is on iron supplements chronically. He had recent cardiac stent placement. He was admitted for further workup. EGD done on showed mild esophagitis without ulcers and erosions. There is a white-based ulcer in the antrum with edema and erythema. GI agreeable with restarting the Plavix and aspirin. Dr. Roman is okay with starting him on pantoprazole in the context of plavix. In this regard, the patient will be continuing with aspirin and Plavix for his recent coronary stent placement, and he will be getting the pantoprazole. His hemoglobin on the day of discharge is 9.7. His BUN is 17 and creatinine of 1.23. Patient is clinically stable, cleared by both Cardiology and GI specialist. He will be discharged home today in stable condition. DISCHARGE INSTRUCTIONS: Activity as tolerated. Healthy heart diet. Follow up with the primary care physician in 1 week. Discharge time took over 30 minutes. Job ID: [id number] MTDD
--- NOTE | 2019-06-26 08:15 | CON ---
DATE OF CONSULTATION: 06/25/2019 SUBJECTIVE: Mr. Berman is doing well. No current complaints. No recurrence of bleeding. OBJECTIVE: VITAL SIGNS: Blood pressure 110/70, pulse 80, respiration 20. LUNGS: Clear to auscultation. HEART: Regular rate and rhythm. ABDOMEN: Soft, nontender, nondistended. EXTREMITIES: No edema. IMPRESSION: 1. Gastrointestinal bleed. 2. Coronary artery disease. 3. Status post stent. RECOMMENDATIONS: 1. Continue aspirin 81 q.a.m. and Plavix 75 q.a.m. 2. Add Protonix q.a.m. 3. Review of the literature does not show convincing evidence on decreased efficacy of Plavix with PPI. Most notably, Pepcid and Nexium seem to have the most consistent data on interaction less and less likely Protonix. At this point, that would be okay from my standpoint. Discussed with Dr. Yevgeniy Roman on the above. 4. From my standpoint, he is okay for discharge to home with close outpatient followup. Job ID: [id number]
--- NOTE | 2019-06-26 15:21 | EKG ---
Test Reason : Blood Pressure : / mmHG Vent. Rate : 081 BPM Atrial Rate : 081 BPM P-R Int : 128 ms QRS Dur : 076 ms QT Int : 352 ms P-R-T Axes : 016 001 005 degrees QTc Int : 408 ms Normal sinus rhythm Nonspecific ST and T wave abnormality Abnormal ECG Confirmed by KENNEDY PORTER DO ([id number]), assistant editor YULIANA GREEN ([id number]) on 06/26/2019 3:21:24 PM Referred By: Confirmed By:KENNEDY PORTER DO
--- NOTE | 2019-06-27 07:43 | PRG ---
DATE OF SERVICE: 06/25/2019 SUBJECTIVE: Mr. Berman is doing well. No bleeding. Dr. Chappell wants him to be on a PPI that is compatible with Plavix. OBJECTIVE: VITAL SIGNS: Blood pressure 110/70, pulse 80, and respirations 20. LUNGS: Clear. HEART: Regular rate and rhythm. ABDOMEN: Soft and nontender. ASSESSMENT: 1. Gastrointestinal bleeding, resolved. 2. Coronary artery disease with recent left anterior descending stent in the past few months. 3. Esophagogastroduodenoscopy showed a white based gastric ulcer. Biopsies were negative for Helicobacter pylori. RECOMMENDATIONS: Daily PPI. Protonix should be okay with the Plavix. He is going to follow up with Dr. Chappell . If he becomes fatigued or dizzy, I asked him to follow up with me right away. Otherwise, he will need a blood count checked in a few weeks. He can do that with Cardiology . Job ID: [id number]
== END 2019-06-25 14:48 | disposition home or self-care (01) | DRG 392 ==
LOC: ERS 14:48 → 2SW 18:59 → OBSVTOIN 18:59 → 2NO 06-24 18:31
PROVIDERS: ADMIT Internal Medicine; ATTEND Internal Medicine
PROC: 0DB78ZX Excision of Stomach, Pylorus, Via Natural or Artificial Opening Endoscopic, Diagnostic (ICD-10-PCS; principal; 2019-06-24)
DX: K20.8 Other esophagitis (principal); K92.2 Gastrointestinal hemorrhage, unspecified; I24.8 Other forms of acute ischemic heart disease; N17.9 Acute kidney failure, unspecified; D62 Acute posthemorrhagic anemia; I95.1 Orthostatic hypotension; I25.10 Atherosclerotic heart disease of native coronary artery without angina pectoris; I12.9 Hypertensive chronic kidney disease with stage 1 through stage 4 chronic kidney disease, or unspecified chronic kidney disease; N18.9 Chronic kidney disease, unspecified; E78.5 Hyperlipidemia, unspecified; E03.9 Hypothyroidism, unspecified; D50.9 Iron deficiency anemia, unspecified; I35.0 Nonrheumatic aortic (valve) stenosis; N52.9 Male erectile dysfunction, unspecified; D63.1 Anemia in chronic kidney disease; N40.0 Benign prostatic hyperplasia without lower urinary tract symptoms; Z95.5 Presence of coronary angioplasty implant and graft; Z87.891 Personal history of nicotine dependence; Z98.42 Cataract extraction status, left eye; Z98.41 Cataract extraction status, right eye
CPT/HCPCS: 36415; 71045; 74177; 80048; 80053; 81001; 82274; 82550; 82553; 83605; 83735; 83880; 84145; 84484; 85025; 88305; 88312; 93005; 96361; 96374; 96375; C9113; J2001; J2405; J2704; J3475; Q9967

== ENCOUNTER 2021-01-13 11:41 | Outpatient (CLI) | payer MEDICARE, BC | END 2021-01-13 11:42 | disposition home or self-care (01) | LOC: RAD 11:41 | PROVIDERS: ATTEND Internal Medicine | DX: R06.00 Dyspnea, unspecified (principal) | CPT/HCPCS: 71046 ==

== ENCOUNTER 2021-02-09 05:47 | Day surgery (SDC) | payer MEDICARE, BC ==
[2021-02-08 11:51] VITALS: BMI 28.5
== END 2021-02-09 07:00 | disposition home or self-care (01) ==
LOC: SDC 05:47
PROVIDERS: ATTEND Internal Medicine Cardiovascular Disease
DX: I35.0 Nonrheumatic aortic (valve) stenosis (principal); Z53.09 Procedure and treatment not carried out because of other contraindication; Z79.82 Long term (current) use of aspirin; Z79.899 Other long term (current) drug therapy

== ENCOUNTER 2021-03-11 13:25 | Outpatient (CLI) | payer MEDICARE, BC ==
[2021-03-11 14:57] LABS: #Basophils 0.1 10x3/uL (0.0-0.2); #Eosinphils 0.2 10x3/uL (0.0-0.5); #Monocytes 0.6 10x3/uL (0.0-1.1); #Neutrophils 4.6 10x3/uL (1.5-8.4); %Basophils 0.7 % (0.0-2.0); %Eosinophils 2.7 % (0.0-6.0); %Lymphocytes 18.9 % (18.0-47.0); %Monocytes 8.8 % (0.0-10.0); %Neutrophils 68.3 % (40.0-75.0); Hemoglobin 13.4 g/dL (13.5-17.5); Mean Corpuscular Hemoglobin 30.8 pg (27.0-33.0); Mean Corpuscular Volume 93.3 fl (81.2-95.1); Mean Platelet Volume 12.1 fl (7.4-10.4); Platelet Count 125 10x3/uL (150-450); RBC Distribution Width 14.5 % (11.5-14.5); Red Blood Cell (RBC) Count 4.35 10x6/uL (4.32-5.72); White Blood Cell (WBC) Count 6.8 10x3/uL (3.5-10.5)
[2021-03-11 15:21] LABS: ALT (SGPT) 18 U/L (8-55); AST (SGOT) 16 U/L (5-34); Albumin 4.3 g/dL (3.4-4.8); Alkaline Phosphatase 78 U/L (40-110); Anion Gap 13 mmol/L (10-20); BUN (Urea Nitrogen) 15 mg/dL (8.4-25.7); Calc. Creatinine Clearance 0 mL/min (70-130); Calcium 9.6 mg/dL (7.8-10.44); Carbon Dioxide 28 mmol/L (23-31); Chloride 103 mmol/L (98-107); Globulin 3.2 g/dL (2.4-3.5); Glucose 103 mg/dL (83-110); Potassium 4.7 mmol/L (3.5-5.1); Protein, Total 7.5 g/dL (5.8-8.1); Sodium 139 mmol/L (136-145)
[2021-03-12 13:56] LABS: SARS-CoV-2 PCR by NAA Not Detected (NotDetected)
== END 2021-03-11 13:26 | disposition home or self-care (01) ==
LOC: LABBT 13:25
PROVIDERS: ATTEND Internal Medicine Cardiovascular Disease
DX: Z01.812 Encounter for preprocedural laboratory examination (principal); Z20.822 Contact with and (suspected) exposure to COVID-19
CPT/HCPCS: 80053; 85025; U0003; U0005

== ENCOUNTER 2021-03-16 05:47 | Day surgery (SDC) | payer MEDICARE, BC ==
[2021-03-15 12:29] VITALS: BMI 29.2
[2021-03-16] MEDS ORDERED: Iopamidol 370 76% 100 ML VIAL ONE (09:51)
[2021-03-16 12:52] LABS: Anion Gap 11 mmol/L (10-20); BUN (Urea Nitrogen) 18 mg/dL (8.4-25.7); Calc. Creatinine Clearance 55 mL/min (70-130); Calcium 9.9 mg/dL (7.8-10.44); Carbon Dioxide 27 mmol/L (23-31); Chloride 104 mmol/L (98-107); Glucose 104 mg/dL (83-110); Potassium 4.3 mmol/L (3.5-5.1); Sodium 138 mmol/L (136-145)
[2021-03-16] MEDS ORDERED: Fentanyl 100 MCG/2 ML VIAL ONE (12:59)
[2021-03-16] MEDS ORDERED: Midazolam HCl 2 mg/2 ml Vial ONE (12:59)
[2021-03-16] MEDS ORDERED: Adenosine 6 MG/2 ML VIAL ONE (13:37)
[2021-03-16] MEDS ORDERED: Heparin 10,000 UNITS/ 10 ML VIAL ONE (14:06)
[2021-03-17] MEDS ORDERED: Protamine Sulfate 50 MG/5 ML VIAL ONE (06:21)
== END 2021-03-16 19:15 | disposition home or self-care (01) ==
LOC: CCL 05:47
PROVIDERS: ATTEND Internal Medicine Cardiovascular Disease
PROC: 4A023N7 Measurement of Cardiac Sampling and Pressure, Left Heart, Percutaneous Approach (ICD-10-PCS; principal; 2021-03-16)
PROC: B2111ZZ Fluoroscopy of Multiple Coronary Arteries using Low Osmolar Contrast (ICD-10-PCS; 2021-03-16)
DX: I35.0 Nonrheumatic aortic (valve) stenosis (principal); I25.10 Atherosclerotic heart disease of native coronary artery without angina pectoris; I10 Essential (primary) hypertension; E78.5 Hyperlipidemia, unspecified; N52.9 Male erectile dysfunction, unspecified; Z87.891 Personal history of nicotine dependence; Z79.82 Long term (current) use of aspirin; Z79.899 Other long term (current) drug therapy; Z88.8 Allergy status to other drugs, medicaments and biological substances; Z95.5 Presence of coronary angioplasty implant and graft
CPT/HCPCS: 80048; 85347; 93460; 93571; 99152; 99153; C1769; J0153; J1644; J2250; J3010; Q9967

== ENCOUNTER 2022-05-09 08:46 | Outpatient (CLI) | payer MEDICARE, BC | END 2022-05-09 08:47 | disposition home or self-care (01) | LOC: NM 08:46 | PROVIDERS: ATTEND Internal Medicine | DX: R06.02 Shortness of breath (principal) | CPT/HCPCS: 71046; 78451; A9540 ==